=== PATIENT | male | born 1965 | race Caucasian/White ===

== ENCOUNTER 2018-12-03 18:55 | Emergency (ER) | payer OTHER ==
--- NOTE | 2018-12-03 19:31 | ED Physician Documentation ---
Fall - HISTORIAN Historian: patient, spouse () - HPI Stated Complaint: Fall from ladder/roof cleaning gutters of 2 story house Chief Complaint: Multiple Trauma Additional Information: Patient is a 53-year-old male that arrives via POV from home. Patient states he fell off a ladder but cannot remember all the details. He thinks he was cleaning the gutters. He states that he could not remember anything after he fell but he is starting to remember bits and pieces. states that she was in the house and heard some commotion on the roof- she went outside and patient had the ladder on top of the car port. He was on the ladder (on the car port) reaching to the second story to clean the gutters (in the rain). states that she was outside telling him to get down; the ladder slid forward and patient fell to his back on the car port. Patient fell from the top of the ladder approx. 10 ft. states that he did not lose consciousness but was doing a lot of mumbling. They were able to assist him off the roof of the carport. Onset: just prior to arrival Where: home Context: other (fell off ladder) r: moderate Associated Symptoms:: dazed, memory impairment Location of Pain/Injury: head, upper back, mid back, lower back, lower extremity Injury to Right Extremity: knee Injury to Left Extremity: ankle - ROS CONST: no problems NEURO: denies: dizziness MS/SKIN/LYMPH: back pain EYES/ENT: none CVS/RESP: none - PAST HX Past History: other (hypothyroid, choly, appy, gastric bypass, right shoulder scope, sinus surgery) Immunizations: UTD Allergies/Adverse Reactions: Allergies Allergy/AdvReac Type Severity Reaction Status Date / Time No Known Allergies Allergy Verified 12/03/18 19:09 Home Medications: Ambulatory Orders Medication Instructions Recorded Baclofen 10 mg PO BID PRN #20 tablet 12/03/18 Cyanocobalamin (Vitamin B-12) 12/03/18 [Vitamin B-12] Levothyroxine Sodium [Euthyrox] 125 mcg PO DAILY 12/03/18 Testosterone Cypionate [Testone 12/03/18 Cik] - SOCIAL HX Smoking History: less than 1 pack/day Alcohol Use: none Drug Use: none - FAMILY HX Family History: none - VITAL SIGNS Vital Signs: Vital Signs Temp Pulse Resp BP Pulse Ox 68 18 139/96 96 12/03/18 18:55 12/03/18 18:55 12/03/18 18:55 12/03/18 18:55 - REVIEWED ASSESSMENTS Nursing Assessment Reviewed: Yes Vitals Reviewed: Yes Progress - Progress Progress: 20:20 Spoke with patient about L4 Transverse fracture- explained that healing time is approx. 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 Patient had a ? proximal fib fx but radiologist recommended correlating it with area of discomfort- does not correlate with area of discomfort- patients discomfort was medial not lateral (no fracture noted medially). 20:30 Henry wraps to the right knee, right ankle, and left ankle- patient is ambulatory without difficulty. ED Results Lab/Radiology - Radiology Radiology Impressions: EXAMINATION: CT BRAIN W/O CONTRAST HISTORY: FALL OFF LADDER, HEAD INJURY, MEMORY LOSS TECHNIQUE: CT of the head was performed without contrast according to standard protocol. COMPARISON: None FINDINGS: No acute intra- or extra-axial fluid collections are identified. The ventricles are of normal size, shape, and morphology. The basilar cisterns are patent. No mass effect or midline shift is seen. The rios-white matter differentiation is normal. The visible portions of the orbits, paranasal sinuses, and mastoids appear normal. No acute fracture is identified. IMPRESSION: 1. No acute intracranial process. EXAMINATION: CT C-SPINE W/O CONTRAS HISTORY: FALL OFF LADDER, MEMORY LOSS TECHNIQUE: CT of the cervical spine was performed without contrast according to standard protocol. COMPARISON: None FINDINGS: The alignment is normal. Vertebral bodies are normal in height without evidence of acute fracture. The craniocervical junction is normal. The intervertebral discs appear normal. No spinal canal stenosis is seen. There are varying degrees of mild facet osteoarthritis. The uncovertebral joints appear normal. No neural foraminal stenosis is seen. No soft tissue abnormality is identified. IMPRESSION: 1. No evidence of acute fracture in the cervical spine. EXAMINATION: CT T-SPINE W/O CONTRAS HISTORY: BACK PAIN, FALL FROM LADDER TECHNIQUE: CT of the thoracic spine was performed without contrast according to standard protocol. COMPARISON: None FINDINGS: The alignment is normal. Vertebral bodies are normal in height without evidence of acute fracture. The intervertebral discs appear normal. No central canal stenosis is seen. The facets appear normal. No neural foraminal stenosis is seen. Postsurgical changes are seen at the stomach. IMPRESSION: 1. No evidence of acute fracture in the thoracic spine. EXAMINATION: CT L-SPINE W/O CONTRAS HISTORY: fall off ladder, low back pain TECHNIQUE: CT of the lumbar spine was performed without contrast according to standard protocol. COMPARISON: None FINDINGS: The alignment is normal. Vertebral bodies are normal in height without evidence of acute fracture. There is L5/S1 degenerative disc disease and disc vacuum phenomenon. No spinal canal stenosis is seen. There is at least moderate facet osteoarthritis and neural foraminal stenosis at L4/L5 and L5/S1. The aorta is atherosclerotic. There is a right L4 transverse process fracture. IMPRESSION: 1. Right L4 transverse process fracture. EXAMINATION: KNEE 3 VIEWS HISTORY: RT KNEE PAIN, FALL FROM LADDER COMPARISON: None FINDINGS: There is a subtle linear lucency through the proximal fibular tip. No dislocation is seen. The joint space is preserved. No joint effusion is seen. IMPRESSION: Subtle linear lucency through the proximal fibular tip, likely representing a nondisplaced fracture. Correlation with the site of the patient's pain is recommended for confirmation. (patients pain is medial not lateral- no fracture noted to area of pain) EXAMINATION: ANKLE 3 VIEWS OR MORE HISTORY: LT ANKLE PAIN, FALL FROM LADDER COMPARISON: None FINDINGS: The osseous structures are intact and well aligned without acute fracture or dislocation. The joint spaces are preserved. Bone density is normal. No soft tissue swelling is seen. There is a calcaneal spur. IMPRESSION: No acute fracture or dislocation identified. - Orders Orders: ED Orders Category Date Time Status ANKLE 3 VIEWS OR MORE [RAD] Stat Exams 12/03/[address] BRAIN W/O CONTRAST Stat Exams 12/03/[address] C-SPINE W/O CONTRAST Stat Exams 12/03/[address] LUMBAR SPINE W/O [CT L-SPINE W/O CONTRAST] Stat Exams 12/03/[address] T-SPINE W/O CONTRAST Stat Exams 12/03/18 Ordered KNEE 3 VIEWS [RAD] Stat Exams 12/03/18 Ordered Cyclobenzaprine HCl [Flexeril] Med 12/03/18 19:26 Once 10 mg PO NOW ONE fentaNYL CITRATE/PF [Sublimaze] Med 12/03/18 19:26 Ordered 50 mcg IM PRN PRN Fall Physical Exam - Physical Exam General Appearance: alert, moderate distress Head: trauma (redness to the back of head) Neck: non-tender Eye: LIN, EOMI, lids & conjunct. nml ENT: nml external inspection, no oral injury, airway nml Resp/CVS: chest non-tender, breath sounds nml, no resp. 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 symmetrical Skin: color nml, other (linear abrasion to the left lower leg, abrasion to the lumbar) Back: muscle spasm, vertebral tenderness (lumbar) Extremities: pelvis stable, hips non-tender, nml color/temp Joint: limited ROM, painful (left ankle and right knee) - Schroeder Coma Score Eyes Open: Spontaneous Speech: Oriented Motor: Obeys Commands Discharge Clincal Impression: Lumbar transverse process fracture, Right knee sprain, Bilateral ankle pain, Head injury Prescriptions: Baclofen 10 mg PO BID PRN #20 tablet PRN Reason: muscle spasms Referrals: Primary Doctor,No [Primary Care Provider] - 2 Days Additional Instructions: Diagnosis: L4 transverse process fracture No heavy lifting Follow up with Ortho at [facility] (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 Ortho 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) Use heating pad to affected areas May use Bengay, Icy Hot, Salonpas May take Baclofen 10mg by mouth twice a day as needed for muscle spasm Tylenol every 4 hours as needed Follow up with PCP as needed Comments: Diagnosis: L4 transverse process fracture No heavy lifting Follow 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
[2018-12-03] MEDS ORDERED: fentaNYL CITRATE/PF 100 MCG/2 ML INJ. ONE (19:33)
[2018-12-03] MEDS: CYCLOBENZAPRINE HCL 10 MG TABLET PO ONE (19:49)
[2018-12-03] MEDS: fentaNYL CITRATE/PF 100 MCG/2 ML INJ. IM PRN (19:49)
[2018-12-03 21:05] VITALS: BP 138/97
--- NOTE | 2018-12-04 05:42 | Diagnostic Imaging Report ---
[facility] ED [facility] [address] [facility] [address] [address] Report Submission Date: December 03, 2018 7:58:36 PM CDT Patient Study Name: YEIMI ALFARO Date: December 03, 2018 7:31:01 PM CDT Modality Type: DX Gender: M Description: ANKLE 3 VIEWS OR MORE : 69 Institution: [facility] Physician: [facility] ED EXAMINATION: ANKLE 3 VIEWS OR MORE HISTORY: LT ANKLE PAIN, FALL FROM LADDER COMPARISON: None FINDINGS: The osseous structures are intact and well aligned without acute fracture or dislocation. The joint spaces are preserved. Bone density is normal. No soft tissue swelling is seen. There is a calcaneal spur. IMPRESSION: No acute fracture or dislocation identified. Electronically signed on December 03, 2018 7:58:36 PM CDT by: Evaristo INGRAM
--- NOTE | 2018-12-04 05:42 | Diagnostic Imaging Report ---
[facility] ED [facility] [address] [facility] [address] [address] Report Submission Date: December 03, 2018 7:57:40 PM CDT Patient Study Name: YEIMI ALFARO Date: December 03, 2018 7:33:36 PM CDT Modality Type: DX Gender: M Description: KNEE 3 VIEWS : 69 Institution: [facility] Physician: HONEY HALLMAN ED EXAMINATION: KNEE 3 VIEWS HISTORY: RT KNEE PAIN, FALL FROM LADDER COMPARISON: None FINDINGS: There is a subtle linear lucency through the proximal fibular tip. No dislocation is seen. The joint space is preserved. No joint effusion is seen. IMPRESSION: Subtle linear lucency through the proximal fibular tip, likely representing a nondisplaced fracture. Correlation with the site of the patient's pain is recommended for confirmation. Electronically signed on December 03, 2018 7:57:40 PM CDT by: Evaristo INGRAM
--- NOTE | 2018-12-04 05:43 | Diagnostic Imaging Report ---
[facility]Y [facility] ED [facility] [address] [facility] [address] [place], [place]. [address] Report Submission Date: December 03, 2018 7:43:26 PM CDT Patient Study Name: YEIMI ALFARO Date: December 03, 2018 7:06:35 PM CDT Modality Type: CT\SR Gender: M Description: CT T-SPINE W/O CONTRAS : 69 Institution: [facility] Physician: HONEY HALLMAN ED EXAMINATION: CT T-SPINE W/O CONTRAS HISTORY: BACK PAIN, FALL FROM LADDER TECHNIQUE: CT of the thoracic spine was performed without contrast according to standard protocol. COMPARISON: None FINDINGS: The alignment is normal. Vertebral bodies are normal in height without evidence of acute fracture. The intervertebral discs appear normal. No central canal stenosis is seen. The facets appear normal. No neural foraminal stenosis is seen. Postsurgical changes are seen at the stomach. IMPRESSION: 1. No evidence of acute fracture in the thoracic spine. Electronically signed on December 03, 2018 7:43:26 PM CDT by: Evaristo INGRAM
--- NOTE | 2018-12-04 05:44 | Diagnostic Imaging Report ---
[facility] ED [facility] [address] [facility] [address] [place], [place]. [address] Report Submission Date: December 03, 2018 7:48:16 PM CDT Patient Study Name: YEIMI ALFARO Date: December 03, 2018 7:09:39 PM CDT Modality Type: CT\SR Gender: M Description: CT L-SPINE W/O CONTRAS : 69 Institution: [facility] Physician: HONEY HALLMAN ED EXAMINATION: CT L-SPINE W/O CONTRAS HISTORY: fall off ladder, low back pain TECHNIQUE: CT of the lumbar spine was performed without contrast according to standard protocol. COMPARISON: None FINDINGS: The alignment is normal. Vertebral bodies are normal in height without evidence of acute fracture. There is L5/S1 degenerative disc disease and disc vacuum phenomenon. No spinal canal stenosis is seen. There is at least moderate facet osteoarthritis and neural foraminal stenosis at L4/L5 and L5/S1. The aorta is atherosclerotic. There is a right L4 transverse process fracture. IMPRESSION: 1. Right L4 transverse process fracture. Electronically signed on December 03, 2018 7:48:16 PM CDT by: Evaristo INGRAM
--- NOTE | 2018-12-04 05:45 | Diagnostic Imaging Report ---
[facility] ED [facility] [address] [facility] [address] [place], [place]. [address] Report Submission Date: December 03, 2018 7:40:18 PM CDT Patient Study Name: YEIMI ALFARO Date: December 03, 2018 7:02:36 PM CDT Modality Type: CT\SR Gender: M Description: CT C-SPINE W/O CONTRAS : 69 Institution: [facility] Physician: HONEY HALLMAN ED EXAMINATION: CT C-SPINE W/O CONTRAS HISTORY: FALL OFF LADDER, MEMORY LOSS TECHNIQUE: CT of the cervical spine was performed without contrast according to standard protocol. COMPARISON: None FINDINGS: The alignment is normal. Vertebral bodies are normal in height without evidence of acute fracture. The craniocervical junction is normal. The intervertebral discs appear normal. No spinal canal stenosis is seen. There are varying degrees of mild facet osteoarthritis. The uncovertebral joints appear normal. No neural foraminal stenosis is seen. No soft tissue abnormality is identified. IMPRESSION: 1. No evidence of acute fracture in the cervical spine. Electronically signed on December 03, 2018 7:40:18 PM CDT by: Evaristo INGRAM
--- NOTE | 2018-12-04 05:46 | Diagnostic Imaging Report ---
[facility]ONE[facility]ALL[facility] ED [facility] [address] [facility] [address] [place], [place]. [address] Report Submission Date: December 03, 2018 7:38:10 PM CDT Patient Study Name: YEIMI ALFARO Date: December 03, 2018 7:00:05 PM CDT Modality Type: CT\SR Gender: M Description: CT BRAIN W/O CONTRAST : 69 Institution: [facility] Physician: HONEY HALLMAN ED EXAMINATION: CT BRAIN W/O CONTRAST HISTORY: FALL OFF LADDER, HEAD INJURY, MEMORY LOSS TECHNIQUE: CT of the head was performed without contrast according to standard protocol. COMPARISON: None FINDINGS: No acute intra- or extra-axial fluid collections are identified. The ventricles are of normal size, shape, and morphology. The basilar cisterns are patent. No mass effect or midline shift is seen. The rios-white matter differentiation is normal. The visible portions of the orbits, paranasal sinuses, and mastoids appear normal. No acute fracture is identified. IMPRESSION: 1. No acute intracranial process. Electronically signed on December 03, 2018 7:38:10 PM CDT by: Evaristo INGRAM
== END 2018-12-03 20:40 | disposition home or self-care (01) ==
LOC: ED 18:55
DX: S32.048A Other fracture of fourth lumbar vertebra, initial encounter for closed fracture (principal); S83.91XA Sprain of unspecified site of right knee, initial encounter; S09.90XA Unspecified injury of head, initial encounter; M25.572 Pain in left ankle and joints of left foot; M25.571 Pain in right ankle and joints of right foot; W11.XXXA Fall on and from ladder, initial encounter; Y93.H9 Activity, other involving exterior property and land maintenance, building and construction; Y92.008 Other place in unspecified non-institutional (private) residence as the place of occurrence of the external cause
CPT/HCPCS: 29530; 29540; 70450; 72125; 72128; 72131; 73562; 73610; 96372; 99284; 99285; J3010